=== PATIENT | male | born 1980 | race Caucasian/White ===

== ENCOUNTER 2016-07-03 16:01 | Inpatient (IN) | payer OTHER ==
[2016-07-03 16:40] VITALS: BMI 25.0
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
[2016-07-03] MEDS ORDERED: P-EPHED 60MG/TRIPROLIDI 2.5MG TABLET PO PRN (17:44)
[2016-07-03] MEDS ORDERED: ACETAMINOPHEN 325 MG TABLET (FP) PO PRN (17:44)
[2016-07-03] MEDS ORDERED: NICOTINE POLACRILEX 4 MG GUM BC PRN (17:44)
[2016-07-03] MEDS ORDERED: LOPERAMIDE HCL 2 MG CAPSULE PO PRN (17:44)
[2016-07-03] MEDS ORDERED: MAGNESIUM HYDROX 2400MG/30ML ORAL SUSPENSION 30 ML CUP PO PRN (17:44)
[2016-07-03] MEDS ORDERED: MAG HYDROX/AL HYDROX/SIMETH 30 ML UNIT-DOSE CUP PO PRN (17:44)
[2016-07-03] MEDS ORDERED: MENTHOL/PHENOL 1 EACH UD MM PRN (17:44)
[2016-07-03] MEDS ORDERED: guaiFENesin/D-METHORPHAN HB 10 ML UNIT-DOSE CUPS PO PRN (17:44)
[2016-07-03] MEDS ORDERED: MAGNESIUM CITRATE 300 ML BOTTLE PO PRN (17:44)
[2016-07-03] MEDS ORDERED: diazePAM 5 MG TABLET PO ONE (18:15)
[2016-07-03] MEDS ORDERED: METHADONE HCL 10 MG TABLET (FOR DETOX USE ONLY) PO ONE ×2 (18:30→23:00)
[2016-07-03 20:21] LABS: URINE APPEARANCE CLEAR; URINE BILIRUBIN NEGATIVE (NEGATIVE); URINE BLOOD NEGATIVE (NEGATIVE); URINE COLOR LTYELLOW; URINE GLUCOSE (UA) NEGATIVE (NEGATIVE); URINE KETONE TRACE (NEGATIVE); URINE NITRITE NEGATIVE (NEGATIVE); URINE PROTEIN NEGATIVE (NEGATIVE); URINE UROBILINOGEN NEGATIVE E.U./dl (0.2-1.0)
[2016-07-03 20:25] LABS: URINE LEUK ESTERASE TRACE (NEGATIVE)
[2016-07-03 20:41] LABS: URINE MUCUS RARE; URINE RBC <1 /hpf (0-3); URINE WBC 7 /hpf (3-5)
[2016-07-03] MEDS: THIAMINE HCL 100 MG TABLET (FP) PO SCH (23:10)
[2016-07-03] MEDS: diazePAM 5 MG TABLET PO SCH (23:10)
[2016-07-03] MEDS: diphenhydrAMINE HCL 50 MG CAPSULE PO PRN (23:11)
[2016-07-04] MEDS: IBUPROFEN 400 MG TABLET (FP) PO PRN ×2 (05:49→13:23)
[2016-07-04] MEDS: diazePAM 5 MG TABLET PO SCH ×3 (05:50→23:11)
[2016-07-04] MEDS ORDERED: METHADONE HCL 10 MG TABLET (FOR DETOX USE ONLY) PO SCH (10:00)
[2016-07-04 10:28] LABS: MCH 30.7 pg (25.7-33.7); MCHC 33.1 g/dl (32.0-35.9); MEAN CELL VOLUME 92.6 fl (80-96); MEAN PLT VOLUME 9.4 fl (7.5-11.1); PLATELET COUNT 191 K/MM3 (134-434); RDW 13.1 % (11.9-15.9); WHITE BLOOD COUNT 12.1 K/mm3 (4.0-10.0)
[2016-07-04 10:30] LABS: CALCIUM 8.2 mg/dL (8.5-10.1)
[2016-07-04 10:36] LABS: ALBUMIN 3.9 g/dl (3.4-5.0); BILIRUBIN,TOTAL 0.5 mg/dL (0.2-1.0); CREATININE 1.4 mg/dL (0.7-1.3); TOT PROT 7.1 g/dl (6.4-8.2)
--- NOTE | 2016-07-04 10:48 | PN ---
[facility] CIWA - CIWA Score Nausea/Vomitin Muscle Tremors: 3 Anxiety: 3 Agitation: 2 Paroxysmal Sweats: 1-Minimal Palms Moist Orientation: 0-Oriented Tacttile Disturbances: 1-Very Mild Itch/Numbness Auditory Disturbances: 1-Very Mild Visual Disturbances: 1-Very Mild Sensitivity Headache: 2-Mild CIWA-Ar Total Score: 17 BHS COWS - Scale Resting Pulse: 0= [place] 80 or Below Sweatin= Chills/Flushing Restless Observation: 3= Extraneous Movement Pupil Size: 1= Pupils >than Normal Bone or Joint Aches: 2= Severe Diffuse Aches Runny Nose/ Eye Tearin= Runny Nose/Eyes GI Upset > 30mins: 3= Vomiting/Diarrhea Tremor Observation of Outstretched Hands: 2= Slight Tremor Visible Yawning Observation: 1= 1-2x During Session Anxiety or Irritability: 2=Irritable/Anxious Goose Flesh Skin: 0=Smooth Skin COWS Score: 17 [facility] Progress Note (SOAP) Subjective: ALERT,IRRITABLE,ANXIOUS,INTERRUPTED SLEEP,TREMOR,PAIN IN THE BODY AND BACK Objective: 07/04/16 10:46 Vital Signs Temperature 101.8 F H 07/04/16 06:00 Pulse Rate 92 H 07/04/16 06:00 Respiratory Rate 18 07/04/16 06:00 Blood Pressure 99/64 07/04/16 06:00 O2 Sat by Pulse Oximetry (%) 07/04/16 10:50 REPEAT T IS 98.1 07/04/16 10:55 EKG NSR 07/04/16 10:56 Laboratory Last Values WBC 12.1 K/mm3 (4.0-10.0) H 07/04/16 07:30 RBC 5.21 M/mm3 (4.00-5.60) 07/04/16 07:30 Hgb 16.0 GM/dL (11.7-16.9) 07/04/16 07:30 Hct 48.2 % (35.4-49) 07/04/16 07:30 MCV 92.6 fl (80-96) 07/04/16 07:30 MCHC 33.1 g/dl (32.0-35.9) 07/04/16 07:30 RDW 13.1 % (11.9-15.9) 07/04/16 07:30 Plt Count 191 K/MM3 (134-434) 07/04/16 07:30 MPV 9.4 fl (7.5-11.1) 07/04/16 07:30 Sodium 133 mmol/L (136-145) L 07/04/16 07:30 Potassium 4.6 mmol/L (3.5-5.1) 07/04/16 07:30 Chloride 97 mmol/L (98-107) L 07/04/16 07:30 Carbon Dioxide 27 mmol/L (21-32) 07/04/16 07:30 Anion Gap 9 (8-16) 07/04/16 07:30 BUN 21 mg/dL (7-18) H 07/04/16 07:30 Creatinine 1.4 mg/dL (0.7-1.3) H 07/04/16 07:30 Creat Clearance w eGFR 57.03 (>60) 07/04/16 07:30 Random Glucose 82 mg/dL (74-106) 07/04/16 07:30 Calcium 8.2 mg/dL (8.5-10.1) L 07/04/16 07:30 Total Bilirubin 0.5 mg/dL (0.2-1.0) 07/04/16 07:30 AST 35 U/L (15-37) 07/04/16 07:30 ALT 29 U/L (12-78) 07/04/16 07:30 Alkaline Phosphatase 48 U/L (45-117) 07/04/16 07:30 Total Protein 7.1 g/dl (6.4-8.2) 07/04/16 07:30 Albumin 3.9 g/dl (3.4-5.0) 07/04/16 07:30 Urine Color Ltyellow 07/03/16 20:01 Urine Appearance Clear 07/03/16 20:01 Urine pH 5.0 (5.0-8.0) 07/03/16 20:01 Ur Specific [place] 1.015 (1.001-1.035) 07/03/16 20:01 Urine Protein Negative (NEGATIVE) 07/03/16 20:01 Urine Glucose (UA) Negative (NEGATIVE) 07/03/16 20:01 Urine Ketones Trace (NEGATIVE) H 07/03/16 20:01 Urine Blood Negative (NEGATIVE) 07/03/16 20:01 Urine Nitrite Negative (NEGATIVE) 07/03/16 20:01 Urine Bilirubin Negative (NEGATIVE) 07/03/16 20:01 Urine Urobilinogen Negative E.U./dl (0.2-1.0) 07/03/16 20:01 Ur Leukocyte Esterase Trace (NEGATIVE) H 07/03/16 20:01 Urine RBC <1 /hpf (0-3) 07/03/16 20:01 Urine WBC 7 /hpf (3-5) 07/03/16 20:01 Urine Mucus Rare 07/03/16 20:01 LABS PENDING Assessment: 07/04/16 10:57 WITHDRAWAL SYMPTOM Plan: CONTINUE DETOX,ENCOURAGE ORAL FLUID,REPEAT CBC IN AM
[2016-07-04] MEDS: PRENATAL VITAMINS W/ FOLIC ACID TABLET (FP) PO SCH (10:52)
[2016-07-04] MEDS: NICOTINE 21 MG/24 HOURS TOPICAL PATCH TD SCH (10:53)
[2016-07-04] MEDS: diazePAM 5 MG TABLET PO PRN ×2 (10:55→17:27)
[2016-07-04 11:11] LABS: HIV 1 & 2 AB NEGATIVE; HIV 1 AGp24 NEGATIVE
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
[2016-07-04] MEDS: QUEtiapine FUMARATE 100 MG TABLET (FP) PO SCH (23:10)
[2016-07-04] MEDS: diphenhydrAMINE HCL 50 MG CAPSULE PO PRN (23:11)
[2016-07-04] MEDS: THIAMINE HCL 100 MG TABLET (FP) PO SCH (23:11)
[2016-07-05] MEDS: diazePAM 5 MG TABLET PO PRN ×3 (07:32→17:24)
[2016-07-05] MEDS: NICOTINE 21 MG/24 HOURS TOPICAL PATCH TD SCH (10:37)
[2016-07-05] MEDS: METHADONE HCL 5 MG TABLET (FOR DETOX USE ONLY) PO SCH (10:37)
[2016-07-05] MEDS: PRENATAL VITAMINS W/ FOLIC ACID TABLET (FP) PO SCH (10:37)
[2016-07-05] MEDS: diazePAM 5 MG TABLET PO SCH ×2 (10:37→22:55)
[2016-07-05 10:46] LABS: MCH 31.4 pg (25.7-33.7); MCHC 33.8 g/dl (32.0-35.9); MEAN CELL VOLUME 92.7 fl (80-96); MEAN PLT VOLUME 9.4 fl (7.5-11.1); PLATELET COUNT 158 K/MM3 (134-434); WHITE BLOOD COUNT 7.1 K/mm3 (4.0-10.0)
--- NOTE | 2016-07-05 12:12 | PN ---
[facility] CIWA - CIWA Score Nausea/Vomitin Muscle Tremors: 3 Anxiety: 3 Agitation: 2 Paroxysmal Sweats: 1-Minimal Palms Moist Orientation: 0-Oriented Tacttile Disturbances: 1-Very Mild Itch/Numbness Auditory Disturbances: 1-Very Mild Visual Disturbances: 1-Very Mild Sensitivity Headache: 2-Mild CIWA-Ar Total Score: 17 BHS COWS - Scale Resting Pulse: 0= [place] 80 or Below Sweatin= Chills/Flushing Restless Observation: 3= Extraneous Movement Pupil Size: 1= Pupils >than Normal Bone or Joint Aches: 2= Severe Diffuse Aches Runny Nose/ Eye Tearin= Runny Nose/Eyes GI Upset > 30mins: 2= Nausea/Diarrhea Tremor Observation of Outstretched Hands: 2= Slight Tremor Visible Yawning Observation: 1= 1-2x During Session Anxiety or Irritability: 2=Irritable/Anxious Goose Flesh Skin: 0=Smooth Skin COWS Score: 16 S Progress Note (SOAP) Subjective: ALERT,IRRITABLE,ANXIOUS,INTERRUPTED SLEEP,TREMOR,PAIN IN THE BODY AND BACK Objective: 07/05/16 12:10 Vital Signs Temperature 97.9 F 07/05/16 10:35 Pulse Rate 68 07/05/16 10:35 Respiratory Rate 18 07/05/16 10:35 Blood Pressure 119/53 07/05/16 10:35 O2 Sat by Pulse Oximetry (%) 07/05/16 12:11 Laboratory Results - last 24 hr 07/04/16 07/05/16 07:30 08:13 WBC 7.1 D RBC 4.46 Hgb 14.0 D Hct 41.4 MCV 92.7 MCHC 33.8 RDW 13.0 Plt Count 158 MPV 9.4 RPR Titer Nonreactive Assessment: 07/05/16 12:11 WITHDRAWAL SYMPTOM Plan: WITHDRAWAL SYMPTOM,CONTINUE DETOX,REPEAT CBC NORMAL WBC 7.1
[2016-07-05] MEDS: IBUPROFEN 400 MG TABLET (FP) PO PRN (17:28)
[2016-07-05] MEDS: THIAMINE HCL 100 MG TABLET (FP) PO SCH (22:55)
[2016-07-05] MEDS: QUEtiapine FUMARATE 100 MG TABLET (FP) PO SCH (22:55)
[2016-07-06] MEDS: diazePAM 5 MG TABLET PO PRN ×2 (05:56→14:13)
[2016-07-06] MEDS: PRENATAL VITAMINS W/ FOLIC ACID TABLET (FP) PO SCH (10:19)
[2016-07-06] MEDS: METHADONE HCL 5 MG TABLET (FOR DETOX USE ONLY) PO SCH (10:19)
[2016-07-06] MEDS: diazePAM 5 MG TABLET PO SCH ×2 (10:19→22:34)
[2016-07-06] MEDS: NICOTINE 21 MG/24 HOURS TOPICAL PATCH TD SCH (10:19)
--- NOTE | 2016-07-06 11:37 | PN ---
S Progress Note (SOAP) Subjective: ALERT,IRRITABLE,ANXIOUS,INTERRUPTED SLEEP,PAIN IN BODY AND BACK Objective: 07/06/16 11:36 Vital Signs Temperature 98.4 F 07/06/16 09:56 Pulse Rate 56 L 07/06/16 09:56 Respiratory Rate 20 07/06/16 09:56 Blood Pressure 120/68 07/06/16 09:56 O2 Sat by Pulse Oximetry (%) Assessment: 07/06/16 11:36 WITHDRAWAL SYMPTOM Plan: CONTINUE DETOX
--- NOTE | 2016-07-06 11:41 | EKG ---
Test Reason : Blood Pressure : / mmHG Vent. Rate : 067 BPM Atrial Rate : 067 BPM P-R Int : 134 ms QRS Dur : 082 ms QT Int : 392 ms P-R-T Axes : 074 077 055 degrees QTc Int : 414 ms NORMAL SINUS RHYTHM NORMAL ECG NO PREVIOUS ECGS AVAILABLE Confirmed by JUDY ALLEN MD ([id number]) on 07/06/2016 11:40:55 AM Referred By: Confirmed By:JUDY ALLEN MD
[2016-07-06] MEDS: IBUPROFEN 400 MG TABLET (FP) PO PRN (14:12)
[2016-07-06] MEDS: hydrOXYzine PAMOATE 50 MG CAPSULE (FP) PO PRN ×2 (17:22→22:34)
[2016-07-06] MEDS: THIAMINE HCL 100 MG TABLET (FP) PO SCH (22:34)
[2016-07-06] MEDS: QUEtiapine FUMARATE 100 MG TABLET (FP) PO SCH (22:35)
[2016-07-07] MEDS: hydrOXYzine PAMOATE 50 MG CAPSULE (FP) PO PRN (06:09)
[2016-07-07] MEDS ORDERED: diazePAM 5 MG TABLET PO SCH (10:00)
[2016-07-07] MEDS ORDERED: METHADONE HCL 10 MG TABLET (FOR DETOX USE ONLY) PO SCH (10:00)
[2016-07-07 10:13] VITALS: BP 130/70; PULSE 59; TEMP 97.2
[2016-07-07] MEDS: NICOTINE 21 MG/24 HOURS TOPICAL PATCH TD SCH (10:21)
[2016-07-07] MEDS: PRENATAL VITAMINS W/ FOLIC ACID TABLET (FP) PO SCH (10:21)
--- NOTE | 2016-07-07 10:29 | DS ---
[facility] Detox Discharge Summary Admission Date: 07/03/16 Discharge Date: 07/07/16 - History Present History: Alcohol Dependence, Opioid Dependence, Sedative Dependence - Physical Exam Results Vital Signs: Vital Signs Temperature 97.2 F L 07/07/16 10:13 Pulse Rate 59 L 07/07/16 10:13 Respiratory Rate 18 07/07/16 10:13 Blood Pressure 130/70 07/07/16 10:13 O2 Sat by Pulse Oximetry (%) - Treatment Hospital Course: Detox Protocol Followed, Detoxed Safely, Responded well, Discharged Condition Good - Medication Discharge Medications: Ambulatory Orders Pregabalin [Lyrica -] 100 mg PO BID 07/03/16 Quetiapine Fumarate [Seroquel] 100 mg PO HS #30 tablet 07/05/16 - Diagnosis (1) Alcohol dependence with uncomplicated withdrawal Current Visit: Yes Status: Chronic (2) Insomnia Current Visit: Yes Status: Chronic Qualifiers: Insomnia type: unspecified Qualified Code(s): G47.00 - Insomnia, unspecified (3) Nicotine dependence Current Visit: Yes Status: Chronic Qualifiers: Nicotine product type: cigarettes Substance use status: in withdrawal Qualified Code(s): F17.213 - Nicotine dependence, cigarettes, with withdrawal (4) Opioid dependence with withdrawal Current Visit: Yes Status: Chronic (5) Sedative, hypnotic or anxiolytic dependence with withdrawal, uncomplicated Current Visit: Yes Status: Chronic - AMA Did Patient Leave Against Medical Advice: No (pt d/c'ed early , no acute withdrawls)
[2016-07-08] MEDS ORDERED: METHADONE HCL 5 MG TABLET (FOR DETOX USE ONLY) PO SCH (06:00)
== END 2016-07-07 10:50 | disposition home or self-care (01) | DRG 773 ==
LOC: YASAS 16:01 → Y6N 17:57
PROVIDERS: ADMIT Internal Medicine Addiction Medicine; ATTEND Internal Medicine Addiction Medicine
PROC: HZ2ZZZZ Detoxification Services for Substance Abuse Treatment (ICD-10-PCS; principal; 2016-07-07)
DX: F11.23 Opioid dependence with withdrawal (principal); F13.230 Sedative, hypnotic or anxiolytic dependence with withdrawal, uncomplicated; F10.230 Alcohol dependence with withdrawal, uncomplicated; F17.210 Nicotine dependence, cigarettes, uncomplicated; F32.9 Major depressive disorder, single episode, unspecified; G47.00 Insomnia, unspecified; T33.832A Superficial frostbite of left toe(s), initial encounter; T33.831A Superficial frostbite of right toe(s), initial encounter; T69.8XXA Other specified effects of reduced temperature, initial encounter
CPT/HCPCS: 36415; 80053; 81003; 81015; 85027; 86593; 87389; 93005; 93010